=== PATIENT | female | born 1955 | race Caucasian/White ===

== ENCOUNTER 2016-12-22 14:25 | Emergency (ER) | payer MEDICARE ==
--- NOTE | 2016-12-24 03:47 | ER ---
ADMIT: 12/22/2016 RM/LOC: ER [facility] MR#: [id number] [address] [id number] CULLEN SANDERS [address] [place] [id number] Emergency Room Report SEX: F AGE: 61 : 1955 DATE: 12/22/2016 For chief complaint, history of present illness, past medical history, medications, allergies, review of systems, including physical exam, please see my T-sheet. INTERIM HISTORY: The patient is a 61-year-old white female, who presents to the emergency room with back pain. She was getting ready to pack up a tote and had got down on one knee, experienced pain in the left buttock. She reports she has had pain like this before. She has had a couple of back surgeries in the past. She did take a hydrocodone that she had previously been prescribed, but did not experience any relief. She did present via 911 and she had gotten fentanyl en route. Vital signs are stable. PHYSICAL EXAMINATION: She does have reproducible discomfort in the left buttock concerning for acute sciatica. Minimal pain over the lumbar spine. The patient was given Valium, Decadron, and morphine here in the Emergency Department. She continues to have some pain. She was given on discharge Percocet, Valium, Decadron, and prednisone. IMPRESSION: Sciatica. PLAN: Home, rest. Activity as tolerated. Need to follow up. She does get scheduled back injections, I believe, by Dr. Correa. I think it would be reasonable for her to get that and consider getting that done here in the near future. The patient is in stable condition at the time of discharge. ARIANNA Sadler / Kiran Persaud MD / rj JOB #: [id number] CC: Kiran Persaud MD, Attending Physician Juan Daniel Jimenez MD, Family Physician
== END 2016-12-22 16:35 | disposition home or self-care (01) ==
LOC: ER 14:25
DX: M54.42 Lumbago with sciatica, left side (principal); Z79.82 Long term (current) use of aspirin; Z79.899 Other long term (current) drug therapy

== ENCOUNTER → 2016-12-30 | Outpatient (CLI) | payer MEDICARE | END | disposition home or self-care (01) | LOC: RAD.S 12-18 08:40 | DX: Z12.31 Encounter for screening mammogram for malignant neoplasm of breast (principal); R92.1 Mammographic calcification found on diagnostic imaging of breast ==